=== PATIENT | female | born 1950 | race African-American/Black ===

== ENCOUNTER 2021-04-21 11:18 | Day surgery (SDC) | payer MEDICARE ==
[~2021-04-21] VITALS: Ht 157.5 cm; Wt 95.9 kg
[2021-04-21 11:59] LABS: BASOPHILS 1.2 % (0-2); EOSINOPHILS 7.5 % (0-7); HEMATOCRIT 38.4 % (36.0-48.0); HEMOGLOBIN 12.6 g/dL (12-16); LYMPHOCYTES 20.4 % (15-50); MCH 28.3 pg (26.0-34.0); MCHC 32.7 g/dL (31.0-37.0); MCV 86.7 fL (80.0-100.0); MEAN PLATELET VOLUME 7.4 fL (7.4-10.4); MONOCYTES 13.4 % (2-11); NEUTROPHILS 57.5 % (40-80); PLATELET COUNT 354 10x3/uL (130-400); RBC 4.43 10x6/uL (4.00-5.40); RDW 16.1 % (11.5-14.5); WBC 6.1 10x3/uL (4.8-10.8)
[2021-04-21 12:06] LABS: CALCIUM 9.8 mg/dL (8.5-10.1); CARBON DIOXIDE 25.3 mmol/L (21.0-32.0); POTASSIUM - SERUM 4.3 mmol/L (3.5-5.1)
[2021-04-21] MEDS ORDERED: NORVASC10 MG PO (14:52)
[2021-04-21] MEDS ORDERED: METOPROLOL TART25 MG (14:53)
[2021-04-21] MEDS ORDERED: GLUCOPHAGE500 MG PO (14:54)
[2021-04-21] MEDS ORDERED: ZOLOFT25 MG PO (14:54)
[2021-04-21] MEDS ORDERED: FOLIC ACID0.8 MG PO (14:55)
[2021-04-21] MEDS ORDERED: CENTRUM MEN'S1 EACH PO (14:56)
[2021-04-21] MEDS ORDERED: IBUPROFEN400 MG PO (14:56)
[2021-04-21 15:08] VITALS: Ht 157.5 cm; Wt 95.9 kg
--- NOTE | 2021-04-21 18:05 | NUR ---
1700 PHASE 11 AFTER PROCEDURE. RECIEVED REPORT FROM Aamir FLORES RN, STATES PATIENT PASSING FLATUS AFTER PROCEDURE. PT AWAKE, ALERT W IV INFUSING SLOWLY 1740 TOLERATED LIQUIDS WELL, IV REMOVED W CATH INTACT. 174 REVIEWED DISCHARGE INSTRUCTIONS W ABRAHAN AND VERBALIZED UNDERSTANDING. DISCHARGED VIA WC W ADULT DENTURE PROCESSOR
--- NOTE | 2021-04-22 09:09 | OP ---
PATIENT NAME: BERLIN HITCHCOCK MEDICAL RECORD: [id number] :48 LOCATION:D.OPS ADMISSION DATE: SURGEON: YUKI GONZALEZ MD DATE OF OPERATION: 04/21/2021 PROCEDURE: Colonoscopy. PREOPERATIVE DIAGNOSES: Positive PET scan with uptake in the colon. MEDICATION: Propofol per anesthesia. Colonoscopy was performed. The colonoscope was inserted through the rectum and advanced to the cecum, identified by the ileocecal valve and the appendiceal orifice. The quality of the prep was good. There were multiple left and right-sided diverticula noted. There was a small rectal polyp removed with a cold biopsy forceps. The patient tolerated the procedure well. FINAL DIAGNOSES: Small rectal polyp, left and right-sided diverticula. Remainder of exam normal. PLAN: Advance diet. Check histology results. Recommend fiber supplements. TRANSINT:[id number] Voice Confirmation ID: [id number] DOCUMENT ID: [id number] YUKI GONZALEZ MD at 0909 CC: [id number] DICTATION DATE: 04/21/211657 CLAM SHUCKING MACHINE TENDER: 04/21/211923 [facility] 04/21/21 [facility] [address] [place] [address]
== END 2021-04-21 17:45 | disposition home or self-care (01) ==
LOC: D.OPS 11:18
PROVIDERS: Anesthesiology; ATTEND Internal Medicine Gastroenterology
DX: K62.1 Rectal polyp (principal); K57.90 Diverticulosis of intestine, part unspecified, without perforation or abscess without bleeding; R93.3 Abnormal findings on diagnostic imaging of other parts of digestive tract; E11.9 Type 2 diabetes mellitus without complications; Z79.84 Long term (current) use of oral hypoglycemic drugs